=== PATIENT | male | born 1990 | race African-American/Black ===

== ENCOUNTER 2019-11-02 12:23 | Emergency (ER) | payer OTHER ==
[~2019-11-02] VITALS: Ht 188 cm; Wt 89.0 kg
[2019-11-02 12:47] VITALS: BP 145/103
== END 2019-11-02 13:30 | disposition home or self-care (01) ==
LOC: ER 12:23
DX: Z76.0 Encounter for issue of repeat prescription (principal); F20.9 Schizophrenia, unspecified
CPT/HCPCS: 99282; 99283